=== PATIENT | female | born 1990 | race African-American/Black ===

== ENCOUNTER 2017-07-09 11:30 | Emergency (ER) | payer SELFPAY ==
[2017-07-09] MEDS ORDERED: IPRATROPIUM/ALBUTEROL 0.5-2.5 MG/3 ML AMPUL NEB ONE (12:24)
[2017-07-09] MEDS ORDERED: ALBUTEROL SULFATE 0.083% NEB 2.5 MG/3 ML AMPUL NEB ONE (12:24)
--- NOTE | 2017-07-09 13:13 | RADIOLOGY REPORT (SQ) ---
EXAM DESCRIPTION: CHEST PA/LAT COMPLETED DATE/TIME: 07/09/2017 12:37 pm REASON FOR STUDY: sob COMPARISON: None. EXAM PARAMETERS: NUMBER OF VIEWS: two views TECHNIQUE: Digital Frontal and Lateral radiographic views of the chest acquired. RADIATION DOSE: NA LIMITATIONS: none FINDINGS: LUNGS AND PLEURA: No opacities, masses or pneumothorax. No pleural effusion. MEDIASTINUM AND HILAR STRUCTURES: No masses or contour abnormalities. HEART AND VASCULAR STRUCTURES: Heart normal size. No evidence for failure. BONES: No acute findings. HARDWARE: None in the chest. OTHER: No other significant finding. IMPRESSION: NO SIGNIFICANT RADIOGRAPHIC FINDING IN THE CHEST. TECHNICAL DOCUMENTATION: JOB ID: [id number] [employer]- All Rights Reserved
[2017-07-09] MEDS ORDERED: PREDNISONE 20 MG TABLET PO ONE (13:33)
[2017-07-09] MEDS ORDERED: ALBUTEROL SULFATE HFA (90 MCG/PUFF) 8 GM MDI (1 MDI/ER DISP) IH ONE (13:34)
--- NOTE | 2017-07-09 13:36 | ER Document Report ---
ED General - General Chief Complaint: Cough Stated Complaint: DIFFICULTY BREATHING Time Seen by Provider: 07/09/17 11:59 TRAVEL OUTSIDE OF THE [place] IN LAST 30 DAYS: No - HPI Patient complains to provider of: Cough difficulty breathing Notes: Patient coming in for cough difficulty breathing. States recent upper airway infection cough 2 weeks ago states cough is improved however continues to build shortness of breath. Denies any smoking history denies any travel. Denies fevers chills nausea vomiting chest pain abdominal pain. Upon my evaluation patient has audible wheezing denies a history of asthma. - Related Data Allergies/Adverse Reactions: No Known Allergies Allergy (Verified 07/09/17 11:36) Past Medical History - Social History Smoking Status: Unknown if Ever Smoked Chew tobacco use (# tins/day): No Frequency of alcohol use: None Drug Abuse: None Family History: Reviewed & Not Pertinent Patient has suicidal ideation: No Patient has homicidal ideation: No - Past Medical History Cardiac Medical History: Denies: Hx Atrial Fibrillation, Hx Congestive Heart Failure, Hx Coronary Artery Disease, Hx DVT, Hx Heart Attack, Hx Hypercholesterolemia, Hx Hypertension, Hx Peripheral Vascular Disease, Hx Pulmonary Embolism Pulmonary Medical History: Denies: Hx Asthma, Hx Bronchitis, Hx COPD, Hx Pneumonia Neurological Medical History: Denies: Hx Cerebrovascular Accident, Hx Migraine, Hx Seizures Endocrine Medical History: Denies: Hx Diabetes Mellitus Type 1, Hx Diabetes Mellitus Type 2, Hx Graves' Disease, Hx Hyperthyroidism, Hx Hypothyroidism Renal/ Medical History: Denies: Hx Ectopic , Hx End Stage Renal Disease, Hx Hemodialysis, Hx Hydrocele, Hx Kidney Stones, Hx Ovarian Cysts, Hx Peritoneal Dialysis, Hx Pelvic Inflammatory Disease, Hx Renal Insufficiency, Hx Varicocele Malignancy Medical History: Denies: Hx Bone Cancer, Hx Brain Cancer, Hx Breast Cancer, Hx Cervical Cancer, Hx Colorectal Cancer, Hx Leukemia, Hx Liver Cancer, Hx Lung Cancer, Hx Lymphoma, Hx Ovarian Cancer, Hx Pancreatic Cancer, Hx Renal ( Kidney) Cancer, Hx Skin Cancer GI Medical History: Denies: Hx Cirrhosis, Hx Crohn's Disease, Hx Diverticulitis , Hx Gastritis, Hx Gastroesophageal Reflux Disease, Hx Hepatitis, Hx Hiatal Hernia, Hx Irritable Bowel, Hx Liver Failure, Hx Ulcer, Hx Ulcerative Colitis Musculoskeltal Medical History: Denies Hx Arthritis, Denies Hx Fibromyalgia, Denies Hx Gout, Denies Hx Multiple Sclerosis, Denies Hx Muscular Dystrophy, Denies Hx Muscle Spasm, Denies Hx Muscle Weakness, Denies Hx Musculoskeletal Deformity, Denies Hx Musculoskeletal Trauma Skin Medical History: Denies Hx Cellulitis, Denies Hx Eczema, Denies Hx MRSA, Denies Hx Psoriasis Psychiatric Medical History: Denies: Hx Anxiety, Hx Attention Deficit Hyperactivity Disorder, Hx Bipolar Disorder, Hx Borderline Personality Disorder, Hx Dementia, Hx Depression, Hx Obsessive Compulsive Disorder, Hx Personality Disorder, Hx Post Traumatic Stress Disorder, Hx Schizoaffective Disorder, Hx Schizophrenia Traumatic Medical History: Denies: Hx Fractures, Hx Gunshot Wound, Hx Liver Laceration, Hx Pneumothorax, Hx Spine Fracture, Hx Spleen Laceration/Rupture, Hx Traumatic Brain Injury Infectious Medical History: Denies: Hx C-Diff, Hx Hepatitis, Hx HIV, Hx MRSA, Hx VRE Past Surgical History: Denies: Hx Abdominal Surgery, Hx Adenoidectomy, Hx Appendectomy, Hx Bowel Diversion, Hx Bowel Surgery, Hx Breast Surgery, Hx Cardiac Catheterization, Hx Cardiac Surgery, Hx Carotid Endarterectomy, Hx Section, Hx Cholecystectomy, Hx Colostomy, Hx Coronary Artery Bypass Graft, Hx Coronary Stent, Hx Dilation and Curettage, Hx Gastric Bypass Surgery, Hx Genitourinary Surgery, Hx Gynecologic Surgery, Hx Herniorrhaphy, Hx Hysterectomy, Hx Ileostomy, Hx Inguinal Hernia, Hx Internal Defibrillator, Hx Kidney (Renal Surgery), Hx Lumpectomy, Hx Mastectomy, Hx Myringotomy, Hx Neurologic Surgery, Hx Nose Surgery, Hx Open Heart Surgery, Hx Oral Surgery, Hx Orthopedic Surgery, Hx Pacemaker, Hx Pancreatic Surgery, Hx Pituitary Surgery, Hx Rectal Surgery, Hx Thyroid Surgery, Hx Tonsillectomy, Hx Tubal Ligation, Hx Umbilical Hernia, Hx Urinary Tract Surgery, Hx Urostomy, Hx Valve Replacement, Hx Vascular Surgery, Hx SOUND EFFECTS SUPERVISOR Shunt, Hx Whipple - Immunizations Hx Diphtheria, Pertussis, Tetanus Vaccination: No Review of Systems - Review of Systems Constitutional: No symptoms reported EENT: No symptoms reported Cardiovascular: No symptoms reported Respiratory: Cough, Short of breath, Wheezing Gastrointestinal: No symptoms reported Genitourinary: No symptoms reported Female Genitourinary: No symptoms reported Musculoskeletal: No symptoms reported Skin: No symptoms reported Hematologic/Lymphatic: No symptoms reported Neurological/Psychological: No symptoms reported -: Yes All other systems reviewed and negative Physical Exam - Vital signs Vitals: Temp Pulse Resp BP Pulse Ox 98.0 F 98 22 H 160/80 H 100 07/09/17 11:36 07/09/17 11:36 07/09/17 11:36 07/09/17 11:36 07/09/17 11:36 Interpretation: Normal - General General appearance: Appears well, Alert - HEENT Head: Normocephalic, Atraumatic Eyes: Normal Pupils: PERRL - Respiratory Respiratory status: No respiratory distress Chest status: Nontender Breath sounds: Rhonchi, Wheezing Chest palpation: Normal - Cardiovascular Rhythm: Regular Heart sounds: Normal auscultation Murmur: No - Abdominal Inspection: Normal Distension: No distension Bowel sounds: Normal Tenderness: Nontender Organomegaly: No organomegaly - Back Back: Normal, Nontender - Extremities General upper extremity: Normal inspection, Nontender, Normal color, Normal ROM , Normal temperature General lower extremity: Normal inspection, Nontender, Normal color, Normal ROM , Normal temperature, Normal weight bearing. No: Dick's sign - Neurological Neuro grossly intact: Yes Cognition: Normal Orientation: AAOx4 [place] Coma Scale Eye Opening: Spontaneous [place] Coma Scale Verbal: Oriented [place] Coma Scale Motor: Obeys Commands [place] Coma Scale Total: 15 Speech: Normal Motor strength normal: LUE, RUE, LLE, RLE Sensory: Normal - Psychological Associated symptoms: Normal affect, Normal mood - Skin Skin Temperature: Warm Skin Moisture: Dry Skin Color: Normal Course - Re-evaluation Re-evalutation: 07/09/17 14:36 Chest x-ray is negative for any signs of pneumonia or infectious process. Patient better after breathing treatments wheezing has improved however still persistent. No signs of hypoxia more likely underlying bronchitis or reactive airway disease. Patient will be treated with steroids and bronchodilators. Patient feeling much better will be discharged home. - Vital Signs Vital signs: Temp Pulse Resp BP Pulse Ox 98.0 F 98 23 H 142/91 H 100 07/09/17 11:36 07/09/17 11:36 07/09/17 14:12 07/09/17 14:15 07/09/17 13:01 Discharge - Discharge Clinical Impression: Bronchitis Condition: Good Disposition: HOME, SELF-CARE Instructions: Bronchitis ([facility]) Additional Instructions: Your chest x-ray does not show any signs of pneumonia. Your examination does reveal diffuse wheezing more likely due to underlying bronchitis. Please use the inhaler that we gave you here in the ER 2 puffs every 4 hours for the next 5 days then as needed for shortness of breath. Take steroids as prescribed. Follow-up with your primary care physician as needed return to the ER as needed. Prescriptions: Prednisone [Deltasone 20 mg Tablet] 3 tab PO DAILY 4 Days tablet Forms: Return to Work
[2017-07-09 14:16] VITALS: BP 142/91
== END 2017-07-09 14:16 | disposition home or self-care (01) ==
LOC: ER 11:30
DX: J40 Bronchitis, not specified as acute or chronic (principal); R05 Cough; R06.02 Shortness of breath
CPT/HCPCS: 94640 ×2; 99285; 71020; J7512; J3490; J7620

== ENCOUNTER 2017-09-05 16:29 | Observation (INO) | payer MEDICAID ==
[~2017-09-05 16:29] MED LIST: DEXAMETHASONE SOD PHOSPHATE INJ 4 MG/1 ML VIAL ONE; GLYCOPYRROLATE INJ 0.4 MG/2 ML VIAL ONE; NEOSTIGMINE METHYLSULFATE 10 MG/10 ML VIAL ONE; ONDANSETRON HCL INJ/PF 4 MG/2 ML SDV ONE; ROCURONIUM BROMIDE INJ 50 MG/5 ML VIAL IV ONE; SUCCINYLCHOLINE CHLORIDE INJ 200 MG/10 ML VIAL ONE
[2017-09-05] MEDS ORDERED: RINGERS SOLUTION,LACTATED 1,000 ML IV ONE (16:51)
--- NOTE | 2017-09-05 17:18 | ER Document Report ---
ED General - General Chief Complaint: Abdominal Pain Stated Complaint: ABDOMINAL PAIN Time Seen by Provider: 09/05/17 16:50 Mode of Arrival: Ambulatory Information source: Patient, [facility] Records - Dr. Santana Thurston called over from radiology to state that he had a 10 week ectopic on a patient who is receiving an outpatient ultrasound. TRAVEL OUTSIDE OF THE [place] IN LAST 30 DAYS: No - HPI Patient complains to provider of: Vaginal spotting with Context: Patient states that she saw the health department last week for an evaluation regarding her . Patient is 4 para 2011. She is given a prescription for outpatient ultrasound which she had done today. Radiologist called over to state that the patient had a 10 week 6 day unruptured ectopic via ultrasound. Patient was walked over here to the department for further evaluation - Related Data Allergies/Adverse Reactions: No Known Allergies Allergy (Verified 07/09/17 11:36) Past Medical History - General Information source: Patient - Social History Smoking Status: Never Smoker Frequency of alcohol use: None Lives with: Family Family History: Reviewed & Not Pertinent - Medical History Medical History: Negative - Past Medical History Cardiac Medical History: Denies: Hx Atrial Fibrillation, Hx Congestive Heart Failure, Hx Coronary Artery Disease, Hx DVT, Hx Heart Attack, Hx Hypercholesterolemia, Hx Hypertension, Hx Peripheral Vascular Disease, Hx Pulmonary Embolism Pulmonary Medical History: Denies: Hx Asthma, Hx Bronchitis, Hx COPD, Hx Pneumonia Neurological Medical History: Denies: Hx Cerebrovascular Accident, Hx Migraine, Hx Seizures Endocrine Medical History: Denies: Hx Diabetes Mellitus Type 1, Hx Diabetes Mellitus Type 2, Hx Graves' Disease, Hx Hyperthyroidism, Hx Hypothyroidism Renal/ Medical History: Denies: Hx Ectopic , Hx End Stage Renal Disease, Hx Hemodialysis, Hx Hydrocele, Hx Kidney Stones, Hx Ovarian Cysts, Hx Peritoneal Dialysis, Hx Pelvic Inflammatory Disease, Hx Renal Insufficiency, Hx Varicocele Malignancy Medical History: Denies: Hx Bone Cancer, Hx Brain Cancer, Hx Breast Cancer, Hx Cervical Cancer, Hx Colorectal Cancer, Hx Leukemia, Hx Liver Cancer, Hx Lung Cancer, Hx Lymphoma, Hx Ovarian Cancer, Hx Pancreatic Cancer, Hx Renal ( Kidney) Cancer, Hx Skin Cancer GI Medical History: Denies: Hx Cirrhosis, Hx Crohn's Disease, Hx Diverticulitis , Hx Gastritis, Hx Gastroesophageal Reflux Disease, Hx Hepatitis, Hx Hiatal Hernia, Hx Irritable Bowel, Hx Liver Failure, Hx Ulcer, Hx Ulcerative Colitis Musculoskeltal Medical History: Denies Hx Arthritis, Denies Hx Fibromyalgia, Denies Hx Gout, Denies Hx Multiple Sclerosis, Denies Hx Muscular Dystrophy, Denies Hx Muscle Spasm, Denies Hx Muscle Weakness, Denies Hx Musculoskeletal Deformity, Denies Hx Musculoskeletal Trauma Skin Medical History: Denies Hx Cellulitis, Denies Hx Eczema, Denies Hx MRSA, Denies Hx Psoriasis Psychiatric Medical History: Denies: Hx Anxiety, Hx Attention Deficit Hyperactivity Disorder, Hx Bipolar Disorder, Hx Borderline Personality Disorder, Hx Dementia, Hx Depression, Hx Obsessive Compulsive Disorder, Hx Personality Disorder, Hx Post Traumatic Stress Disorder, Hx Schizoaffective Disorder, Hx Schizophrenia Traumatic Medical History: Denies: Hx Fractures, Hx Gunshot Wound, Hx Liver Laceration, Hx Pneumothorax, Hx Spine Fracture, Hx Spleen Laceration/Rupture, Hx Traumatic Brain Injury Infectious Medical History: Denies: Hx C-Diff, Hx Hepatitis, Hx HIV, Hx MRSA, Hx VRE Past Surgical History: Denies: Hx Abdominal Surgery, Hx Adenoidectomy, Hx Appendectomy, Hx Bowel Diversion, Hx Bowel Surgery, Hx Breast Surgery, Hx Cardiac Catheterization, Hx Cardiac Surgery, Hx Carotid Endarterectomy, Hx Section, Hx Cholecystectomy, Hx Colostomy, Hx Coronary Artery Bypass Graft, Hx Coronary Stent, Hx Dilation and Curettage, Hx Gastric Bypass Surgery, Hx Genitourinary Surgery, Hx Gynecologic Surgery, Hx Herniorrhaphy, Hx Hysterectomy, Hx Ileostomy, Hx Inguinal Hernia, Hx Internal Defibrillator, Hx Kidney (Renal Surgery), Hx Lumpectomy, Hx Mastectomy, Hx Myringotomy, Hx Neurologic Surgery, Hx Nose Surgery, Hx Open Heart Surgery, Hx Oral Surgery, Hx Orthopedic Surgery, Hx Pacemaker, Hx Pancreatic Surgery, Hx Pituitary Surgery, Hx Rectal Surgery, Hx Thyroid Surgery, Hx Tonsillectomy, Hx Tubal Ligation, Hx Umbilical Hernia, Hx Urinary Tract Surgery, Hx Urostomy, Hx Valve Replacement, Hx Vascular Surgery, Hx PHOTOVOLTAIC TECHNICIAN Shunt, Hx Whipple - Immunizations Hx Diphtheria, Pertussis, Tetanus Vaccination: No Review of Systems - Review of Systems Constitutional: No symptoms reported EENT: No symptoms reported Cardiovascular: No symptoms reported Gastrointestinal: No symptoms reported Genitourinary: No symptoms reported Female Genitourinary: , Vaginal bleeding Skin: No symptoms reported Hematologic/Lymphatic: No symptoms reported Neurological/Psychological: No symptoms reported -: Yes All other systems reviewed and negative Physical Exam - Vital signs Vitals: Temp Pulse Resp BP Pulse Ox 99.5 F 73 16 133/68 H 100 09/05/17 17:40 09/05/17 17:40 09/05/17 17:40 09/05/17 17:40 09/05/17 17:40 - Notes Notes: PHYSICAL EXAMINATION: GENERAL: Well-appearing, well-nourished. Extremely teary-eyed and anxious. HEAD: Atraumatic, normocephalic. EYES: Pupils equal round and reactive to light, extraocular movements intact, conjunctiva are normal. ENT: Nares patent, oropharynx clear without exudates. Moist mucous membranes. NECK: Normal range of motion, supple without lymphadenopathy LUNGS: Breath sounds clear to auscultation bilaterally and equal. No wheezes rales or rhonchi. HEART: Regular rate and rhythm without murmurs ABDOMEN: Soft, nontender, nondistended abdomen. No guarding, no rebound. No masses appreciated. Female : deferred Musculoskeletal: Normal range of motion, no pitting or edema. No cyanosis. NEUROLOGICAL: Cranial nerves grossly intact. Normal speech, normal gait. Normal sensory, motor exams PSYCH: Normal mood, normal affect. SKIN: Warm, Dry, normal turgor, no rashes or lesions noted. Course - Re-evaluation Re-evalutation: 09/05/17 17:13 Approximately 10 minutes ago I did call and speak with Dr. Schulte. She is on her way in here. Initial encounter with the patient her and her son who is approximately 10 years old I did ask to speak to her with them there and she said that was fine. I did let her know what was going on. She was very anxious and crying and emotional. I did leave the room after telling her about the need to get blood work and surgery. I did explain to her that this is life- threatening to her. I did ask the nurse to go in to take care of an IV and draw some blood work. The nurse did present to me stating that the patient is refusing everything. When I went back in the room the patient was in a gown however she was quite emotional and crying. I spent approximately 10 minutes in the room explaining to her again that this is life-threatening and that the baby cannot continue to develop in the fallopian tube. I did ask the patient she would like us to call her mom. She states that her mom's at the gym and not answering the phone and she will get in touch with her. The and the son did step out for a short period of time. I did ask the patient if I could please put the IV and get the blood work and that BATCH PLANT OPERATOR would come in and talk to her prior to having any surgical procedure done. After approximately 10 minutes the patient did agree to sit on the gurney and had the IV placed. Talk to blood bank and I will type and cross the patient for 4 units packed red blood cells. 09/05/17 19:13 Her Indocin did present to the emergency department. I brought her into the room introduced her to the patient. She will be admitting the patient taking her to the OR directly. - Vital Signs Vital signs: Temp Pulse Resp BP Pulse Ox 99.5 F 73 16 133/68 H 100 09/05/17 17:40 09/05/17 17:40 09/05/17 17:40 09/05/17 17:40 09/05/17 17:40 - Laboratory Result Diagrams: 09/05/17 17:20 09/05/17 17:20 Laboratory results interpreted by me: 09/05/17 17:20 BUN 5 L Beta HCG, Quant 38234.00 H Critical Care Note - Critical Care Note Total time excluding time spent on procedures (mins): 45 Comments: 45 minutes of critical care time spent in direct contact evaluating and reevaluating the patient, treating symptoms, reviewing labs and studies and speaking with family and consultants excluding any procedures Discharge - Discharge Clinical Impression: EP (ectopic ) Disposition: ADMITTED INPATIENT Admitting Provider: Dr. Schulte Unit Admitted: Surgical Floor
[2017-09-05 17:46] LABS: ABSOLUTE EOSINOPHILS # (AUTO) 0.1 10^3/uL (0.0-0.6); ABSOLUTE MONOCYTES (AUTO) 0.5 10^3/uL (0.1-1.4); ABSOLUTE NEUT (AUTO) 2.7 10^3/uL (1.7-8.2); BASOPHILS % (AUTO) 0.6 % (0-2); EOSINOPHILS % (AUTO) 1.7 % (0-6); HEMATOCRIT 42.1 % (36.0-47.0); HEMOGLOBIN 14.3 g/dL (12.0-15.5); LYMPHOCYTES % (AUTO) 38.2 % (13-45); MEAN CORPUSCULAR HGB CONC 33.9 g/dL (32.0-36.0); MEAN CORPUSCULAR VOLUME 89 fl (80-97); MONOCYTES % (AUTO) 8.5 % (3-13); PLATELET COUNT 224 10^3/uL (150-450); RED BLOOD COUNT 4.76 10^6/uL (3.72-5.28); RED CELL DISTRIBUTION WIDTH 13.4 % (11.5-14.0); TOTAL CELLS COUNTED % (AUTO) 100 %; WHITE BLOOD COUNT 5.3 10^3/uL (4.0-10.5)
[2017-09-05 17:55] LABS: INTERNATIONAL RATION (INR) 0.93; PROTHROMBIN TIME 13.2 SEC (11.4-15.4)
[2017-09-05 18:05] LABS: ALANINE AMINOTRANSFERASE 28 U/L (9-52); ALBUMIN 4.6 g/dL (3.5-5.0); ALKALINE PHOSPHATASE 52 U/L (38-126); ANION GAP 13 (5-19); ASPARTATE AMINO TRANSFERASE 25 U/L (14-36); BILIRUBIN,DIRECT 0.2 mg/dL (0.0-0.4); BILIRUBIN,TOTAL 0.5 mg/dL (0.2-1.3); BLOOD UREA NITROGEN 5 mg/dL (7-20); CALCIUM 10.1 mg/dL (8.4-10.2); CARBON DIOXIDE 22 mmol/L (22-30); CHLORIDE 107 mmol/L (98-107); GLUCOSE 83 mg/dL (75-110); POTASSIUM 3.8 mmol/L (3.6-5.0); SODIUM 141.8 mmol/L (137-145); TOTAL PROTEIN 7.6 g/dL (6.3-8.2)
--- NOTE | 2017-09-05 18:16 | PDOC H&P ---
History of Present Illness Patient complains of: mild spotting and abdominal pain History of Present Illness: CASSY PINA is a 27 year old female @ 10 6/7 days who presented to [facility] radiology today for an outpatient sono for EGA. Was found to have an ectopic measuring as above with heart tones in the 180s. (images were reviewed again by myself and there is no interuterine to be seen and agree there is a fetus measuring 10 wks outside of the uterine cavity.) She indicates that she has had some mild spotting today only with some mild cramping. Past Medical History Cardiac Medical History: Denies: Atrial Fibrillation, Congestive Heart Failure, Coronary Artery Disease, DVT, Myocardial Infarction, Hyperlipidema, Hypertension, Peripheral Vascular Disease, Pulmonary Embolism Pulmonary Medical History: Denies: Asthma, Bronchitis, Chronic Obstructive Pulmonary Disease (COPD), Pneumonia Neurological Medical History: Denies: Migraine, Seizures Endocrine Medical History: Denies: Diabetes Mellitus Type 1, Diabetes Mellitus Type 2, Hyperthyroidism, Hypothyroidism Renal/ Medical History: Denies: End Stage Renal Disease Malignancy Medical History: Denies: Bone Cancer, Brain Cancer, Breast Cancer, Cervical Cancer, Colorectal Cancer, Leukemia, Liver Cancer, Lung Cancer, Lymphoma, Ovarian Cancer , Pancreatic Cancer, Renal (Kidney) Cancer, Skin Cancer GI Medical History: Denies: Cirrhosis, Crohn's Disease, Diverticulitis, Gastroesophageal Reflux Disease, Hepatitis, Hiatal Hernia, Ulcerative Colitis Musculoskeltal Medical History: Denies: Arthritis, Fibromyalgia, Gout Skin Medical History: Denies: Eczema, Psoriasis Psychiatric Medical History: Denies: Attention Deficit Hyperactivity Disorder, Bipolar Disorder, Dementia , Depression, Personality Disorder, Post Traumatic Stress Disorder, Schizoaffective Disorder Traumatic Medical History: Denies: Gunshot Wound, Pneumothorax, Traumatic Brain Injury Infectious Medical History: Denies: Clostridium Difficile, HIV, Methicillin-Resistant Staph Aureus, Vancomycin-Resistant Enterococci Past Surgical History Past Surgical History: Denies: Adenoidectomy, Appendectomy, Cardiac Catheterization, Carotid Endarterectomy, Section, Cholecystectomy, Colostomy, Coronary Artery Bypass Graft, Coronary Stent, Gastric Bypass Surgery, Herniorrhaphy, Hysterectomy, Ileostomy, Internal Defibrillator, Mastectomy, Orthopedic Surgery , Pacemaker, Tonsillectomy, Tubal Ligation, Valve Replacement, Vascular Surgery Social History Lives with: Family Smoking Status: Never Smoker Family History Family History: Reviewed & Not Pertinent Parental Family History Reviewed: Yes Children Family History Reviewed: Yes Sibling(s) Family History Reviewed.: Yes Medication/Allergy Home Medications: Nitrofurantoin Macrocrystal [Macrodantin] 100 mg PO QID #28 capsule 08/06/13 Oxycodone HCl/Acetaminophen [Percocet 5-325 mg Tablet] 1 - 2 tab PO ASDIR PRN # 25 tablet 08/06/13 Acetaminophen with Codeine [Tylenol with Codeine #3 Tablet] 1 - 2 tab PO Q6 PRN #20 tab 08/08/13 Nitrofurantoin Macrocrystal [Nitrofurantoin] 100 mg PO QID 08/08/13 Ondansetron [Zofran Odt 4 mg Tablet] 4 mg PO Q4HP PRN 08/08/13 Phenazopyridine HCl [Pyridium 100 Mg Tablet] 100 mg PO TID #9 tablet 08/08/13 Prednisone [Deltasone 20 mg Tablet] 3 tab PO DAILY 4 Days tablet 07/09/17 Allergies/Adverse Reactions: No Known Allergies Allergy (Verified 07/09/17 11:36) Review of Systems Constitutional: PRESENT: as per HPI Physical Exam - Physical Exam Vital Signs: Temp Pulse Resp BP Pulse Ox 99.5 F 73 16 133/68 H 100 09/05/17 17:40 09/05/17 17:40 09/05/17 17:40 09/05/17 17:40 09/05/17 17:40 Result Laboratory Results: 09/05/17 17:20 09/05/17 09/05/17 17:20 17:20 WBC 5.3 RBC 4.76 Hgb 14.3 Hct 42.1 MCV 89 MCH 30.0 MCHC 33.9 RDW 13.4 Plt Count 224 Seg Neutrophils % 51.0 Lymphocytes % 38.2 Monocytes % 8.5 Eosinophils % 1.7 Basophils % 0.6 Absolute Neutrophils 2.7 Absolute Lymphocytes 2.0 Absolute Monocytes 0.5 Absolute Eosinophils 0.1 Absolute Basophils 0.0 Blood Type Cancelled Status: Image reviewed by me Assessment & Plan - Diagnosis (1) Ectopic without intrauterine Qualifiers: Location of ectopic : tubal Laterality: unspecified laterality Qualified Code(s): O00.109 - Unspecified tubal without intrauterine Is this a current diagnosis for this admission?: Yes - Time Time Spent: 30 to 50 Minutes Critical Time spent with patient: 15-24 minutes Anticipated discharge: Home Within: within 24 hours - Plan Summary Plan Summary: patient in need of a laparoscopic salpingectomy due to EGA of fetus and risks of from hemorrhage. Patient counseled on need for fallopian tube removal and removal of fetus due to these risks and she voices understanding. I counseled her that removal of one fallopian tube does not preclude her from achieving through the other fallopian tube in the future. I also counseled her on risks of the procedure including risks to bowel/bladder/blood vessels and possibility of ostomies, catheters and blood transfusion. Counseled on risks of thrombosis with associated medical complications up to and including . Voices understanding. computer analyst supervisor contacted to post case for emergent laparoscopic salpingectomy with possible laparotomy.
[2017-09-05] MEDS ORDERED: FAMOTIDINE INJ/PF 20 MG/2 ML SDV IV ONE (19:00)
[2017-09-05] MEDS ORDERED: FENTANYL CITRATE INJ/PF 100 MCG/2 ML AMPUL ONE ×2 (19:03→21:15)
[2017-09-05] MEDS ORDERED: MIDAZOLAM 2 MG/2 ML INJ ONE (19:03)
[2017-09-05] MEDS ORDERED: HYDROMORPHONE HCL INJ/PF 2 MG/ML AMPULE ONE (19:04)
[2017-09-05] MEDS ORDERED: ACETAMINOPHEN 100 ML IV ONE (19:04)
[2017-09-05] MEDS ORDERED: PROPOFOL INJ 200 MG/20 ML VIAL IV ONE (19:04)
[2017-09-05] MEDS ORDERED: CEFAZOLIN INJ 1 GM VIAL ONE (19:40)
[2017-09-05] MEDS ORDERED: MEPERIDINE HCL/PF INJ 25 MG/1 ML DISP.SYRIN IV PRN (20:43)
[2017-09-05] MEDS ORDERED: MORPHINE SULFATE 10 MG/ML INJ IV PRN ×2 (20:43→22:00)
[2017-09-05] MEDS ORDERED: OXYCODONE-ACETAMINOPHEN 5-325 MG TABLET PO PRN ×2 (20:43)
[2017-09-05] MEDS ORDERED: DIPHENHYDRAMINE HCL 50 MG/ML VIAL IV PRN (20:43)
[2017-09-05] MEDS ORDERED: FENTANYL CITRATE INJ/PF 100 MCG/2 ML AMPUL IV PRN ×3 (20:43)
[2017-09-05] MEDS ORDERED: PROMETHAZINE HCL INJ 25 MG/1 ML VIAL IV PRN ×2 (20:43)
[2017-09-05] MEDS ORDERED: RINGERS SOLUTION,LACTATED 1,000 ML IV PRN (21:19)
--- NOTE | 2017-09-05 21:39 | OPERATIVE REPORT E ---
Operative Report NAME: CASSY PINA : 1990 AGE: 27Y DATE OF SURGERY: 09/05/2017 ROOM: ED21 PREOPERATIVE DIAGNOSIS: ECTOPIC . POSTOPERATIVE DIAGNOSIS: RIGHT ECTOPIC . SURGEON: Nicolle Galdamez M.D. ANESTHESIA: General by David Tran M.D. FINDINGS: Ectopic , well encased in the right fallopian tube, consistent with ultrasound findings of 10 week gestational age. Left fallopian tube normal. Filmy adhesions of the peritoneal cavity to the uterus and some mild filmy adhesions of the left fallopian tube. ESTIMATED BLOOD LOSS: 20 mL PROCEDURE PERFORMED: Diagnostic laparoscopy with a right salpingectomy. PROCEDURE IN DETAIL: Patient was taken to operating room, prepared and draped in normal sterile fashion in a dorsal lithotomy position under sterile conditions. An in and out catheter was performed with approximately 20 mL of clear urine. A sterile speculum was then placed into the vagina and the cervix was traversed with a Hulka clamp for uterine manipulation. The speculum was removed and gloves were changed and attention was turned to the upper portion of the case where an umbilical skin incision was made with the scalpel and carried through to the underlying layer of fascia with a hemostat. The Veress needle was introduced into the peritoneal cavity and confirmation was confirmed with free flow of sterile water through the Veress needle. Insufflation with approximately 2 L of CO2 gas to a level of 15 mmHg. The Veress needle was then removed and the 5 mm port was placed through this incision. The camera was introduced and the patient was placed into Trendelenburg. Under direct visualization, a 5 mm port was placed in the patient's left lower quadrant and in the right lower quadrant, a 12 mm port was placed under direct visualization. The ligature was then introduced and the mesosalpinx was divided using the ligature until the fallopian tube was completely freed, containing the ectopic . The ectopic was then captured in an EndoCatch bag and removed through the 12 mm port. The fascia was closed at the 12 mm port using an 0 Vicryl. The skin sites were all closed with 4-0 Vicryl. Patient tolerated procedure well. Sponge, lap, and needle counts were correct x2 and the patient was taken to recovery in stable condition. DICTATING PHYSICIAN: NICOLLE GALDAMEZ M.D. [id number] PHY#: [id number] ID: [id number] JOB#: [id number] ACCT: [id number] cc:NICOLLE GALDAMEZ M.D. >
[2017-09-05] MEDS: IBUPROFEN 800 MG TABLET PO PRN (23:14)
[2017-09-06] MEDS: OXYCODONE-ACETAMINOPHEN 5-325 MG TABLET PO PRN ×2 (01:21→08:18)
--- NOTE | 2017-09-06 07:17 | PDOC DISCHARGE SUMMARY ---
General - Admit/Disc Date/PCP Admission Date/Primary Care Provider: 09/05/17 18:19 Discharge Date: 09/06/17 - Discharge Diagnosis (1) Ectopic without intrauterine Is this a current diagnosis for this admission?: Yes - Additional Information Home Medications: Nitrofurantoin Macrocrystal [Macrodantin] 100 mg PO QID #28 capsule 08/06/13 Oxycodone HCl/Acetaminophen [Percocet 5-325 mg Tablet] 1 - 2 tab PO ASDIR PRN # 25 tablet 08/06/13 Acetaminophen with Codeine [Tylenol with Codeine #3 Tablet] 1 - 2 tab PO Q6 PRN #20 tab 08/08/13 Nitrofurantoin Macrocrystal [Nitrofurantoin] 100 mg PO QID 08/08/13 Ondansetron [Zofran Odt 4 mg Tablet] 4 mg PO Q4HP PRN 08/08/13 Phenazopyridine HCl [Pyridium 100 Mg Tablet] 100 mg PO TID #9 tablet 08/08/13 Prednisone [Deltasone 20 mg Tablet] 3 tab PO DAILY 4 Days tablet 07/09/17 History of Present Illness History of Present Illness: CASSY PINA is a 27 year old female @ 10 6/7 days who presented to [facility] radiology today for an outpatient sono for EGA. Was found to have an ectopic measuring as above with heart tones in the 180s. (images were reviewed again by myself and there is no interuterine to be seen and agree there is a fetus measuring 10 wks outside of the uterine cavity.) She indicates that she has had some mild spotting today only with some mild cramping. Hospital Course Hospital Course: presented to ER from radiology with 10 wk ega right ectopic . Underwent a laparoscopic right salpingectomy. Unremarkale post operative course. Physical Exam - Physical Exam Vital Signs: Temp Pulse Resp BP Pulse Ox 98.2 F 73 18 122/59 L 100 09/06/17 03:53 09/06/17 03:53 09/06/17 03:53 09/06/17 03:53 09/06/17 03:53 Intake & Output 09/05/17 09/06/17 09/07/17 06:59 06:59 06:59 Intake Total 1600 Output Total 45 Balance 1555 General appearance: PRESENT: no acute distress, cooperative GI/Abdominal exam: PRESENT: soft, tenderness - appropriate for post operative state. 3 incisions c/d/intact Result Laboratory Results: 09/05/17 18:41 Blood Type A POSITIVE Plan Discharge Plan: discharge home with strict precautions. follow up in 2 wks with [facility]. May have work note as needed for 1 week off. Time Spent: Less than 30 Minutes
[2017-09-06] MEDS: IBUPROFEN 800 MG TABLET PO PRN (08:18)
[2017-09-06 09:46] VITALS: BP 122/59
== END 2017-09-06 10:10 | disposition home or self-care (01) ==
LOC: ER 16:29 → INTOOBSV 18:19 → EH 18:19 → 2N 21:53
PROVIDERS: ATTEND Obstetrics & Gynecology
PROC: 0UT54ZZ Resection of Right Fallopian Tube, Percutaneous Endoscopic Approach (ICD-10-PCS; 2017-09-05)
PROC: 10T24ZZ Resection of Products of Conception, Ectopic, Percutaneous Endoscopic Approach (ICD-10-PCS; principal; 2017-09-05 21:15)
DX: O00.101 Right tubal pregnancy without intrauterine pregnancy (principal)
CPT/HCPCS: 99291; 86900; 86901; 36415; 84702; 85025; 85610; 80053; 88305 ×2; 59151; G0378 ×3; J2250; J0690; J3490 ×4; J1100; J3010; J2270; J1170; J0330; J2405; J2704; J0131; 840

== ENCOUNTER → 2017-09-05 | Outpatient (CLI) | payer SELFPAY ==
--- NOTE | 2017-09-05 16:47 | RADIOLOGY REPORT (SQ) ---
EXAM DESCRIPTION: U/S [id number] TRNABD 1GES W/ODOP COMPLETED DATE/TIME: 09/05/2017 4:39 pm REASON FOR STUDY: ENCOUNTER FOR SUPERVISION OF OTHER NORMAL , FIRST TRIMESTER Z34.81 ENCOU NTER FOR SUPRVSN OF NORMAL , FIRST TRIM COMPARISON: None. TECHNIQUE: Transvaginal static and realtime grayscale images acquired of the pelvis. Additional melinda cted spectral and color Doppler images recorded. All images stored on PACs. bHCG: Not available. LIMITATIONS: None. FINDINGS: There is a tubal in the right fallopian tube with heart rate 192. The daniela maria l is normal. No free fluid. IMPRESSION: Unruptured ectopic . EGA 10 weeks 6 days Trimester of : First - 0 to 13 weeks. COMMENT: Findings were discussed with the patient. Findings were discussed with the ED provider. TECHNICAL DOCUMENTATION: JOB ID: [id number] [employer]- All Rights Reserved
== END ==
LOC: RAD 15:46
PROVIDERS: ATTEND Nurse Practitioner Women's Health
DX: Z34.81 Encounter for supervision of other normal pregnancy, first trimester (principal)
CPT/HCPCS: 76801

== ENCOUNTER 2017-09-07 12:26 | Emergency (ER) | payer MEDICAID ==
[2017-09-07] MEDS ORDERED: HYDROMORPHONE HCL 2 MG TABLET PO ONE (13:14)
[2017-09-07] MEDS ORDERED: ONDANSETRON 4 MG TAB.RAPDIS PO ONE (13:14)
--- NOTE | 2017-09-07 13:16 | ER Document Report ---
ED Medical Screen (RME) - General Chief Complaint: Post Surgical Pain Stated Complaint: BODY ACHES VOMITING Time Seen by Provider: 09/07/17 13:09 Notes: This 27-year-old female patient had a laparoscopic right salpingectomy for ectopic 2 days ago. She was discharged home with Percocet and Motrin. She states it is not helping her pain and she developed nausea and vomiting this morning. She states she is aching all over particularly across her lower back. I have greeted and performed a rapid initial assessment of this patient. A comprehensive ED assessment and evaluation of the patient, analysis of test results and completion of the medical decision making process will be conducted by additional ED providers. TRAVEL OUTSIDE OF THE [place] IN LAST 30 DAYS: No - Related Data Allergies/Adverse Reactions: No Known Allergies Allergy (Verified 07/09/17 11:36) Past Medical History - Past Medical History Cardiac Medical History: Denies: Hx Atrial Fibrillation, Hx Congestive Heart Failure, Hx Coronary Artery Disease, Hx DVT, Hx Heart Attack, Hx Hypercholesterolemia, Hx Hypertension, Hx Peripheral Vascular Disease, Hx Pulmonary Embolism Pulmonary Medical History: Denies: Hx Asthma, Hx Bronchitis, Hx COPD, Hx Pneumonia Neurological Medical History: Denies: Hx Cerebrovascular Accident, Hx Migraine, Hx Seizures Endocrine Medical History: Denies: Hx Diabetes Mellitus Type 1, Hx Diabetes Mellitus Type 2, Hx Graves' Disease, Hx Hyperthyroidism, Hx Hypothyroidism Renal/ Medical History: Denies: Hx Ectopic , Hx End Stage Renal Disease, Hx Hemodialysis, Hx Hydrocele, Hx Kidney Stones, Hx Ovarian Cysts, Hx Peritoneal Dialysis, Hx Pelvic Inflammatory Disease, Hx Renal Insufficiency, Hx Varicocele Malignancy Medical History: Denies: Hx Bone Cancer, Hx Brain Cancer, Hx Breast Cancer, Hx Cervical Cancer, Hx Colorectal Cancer, Hx Leukemia, Hx Liver Cancer, Hx Lung Cancer, Hx Lymphoma, Hx Ovarian Cancer, Hx Pancreatic Cancer, Hx Renal ( Kidney) Cancer, Hx Skin Cancer GI Medical History: Denies: Hx Cirrhosis, Hx Crohn's Disease, Hx Diverticulitis , Hx Gastritis, Hx Gastroesophageal Reflux Disease, Hx Hepatitis, Hx Hiatal Hernia, Hx Irritable Bowel, Hx Liver Failure, Hx Ulcer, Hx Ulcerative Colitis Musculoskeltal Medical History: Denies Hx Arthritis, Denies Hx Fibromyalgia, Denies Hx Gout, Denies Hx Multiple Sclerosis, Denies Hx Muscular Dystrophy, Denies Hx Muscle Spasm, Denies Hx Muscle Weakness, Denies Hx Musculoskeletal Deformity, Denies Hx Musculoskeletal Trauma Skin Medical History: Denies Hx Cellulitis, Denies Hx Eczema, Denies Hx MRSA, Denies Hx Psoriasis Psychiatric Medical History: Denies: Hx Anxiety, Hx Attention Deficit Hyperactivity Disorder, Hx Bipolar Disorder, Hx Borderline Personality Disorder, Hx Dementia, Hx Depression, Hx Obsessive Compulsive Disorder, Hx Personality Disorder, Hx Post Traumatic Stress Disorder, Hx Schizoaffective Disorder, Hx Schizophrenia Traumatic Medical History: Denies: Hx Fractures, Hx Gunshot Wound, Hx Liver Laceration, Hx Pneumothorax, Hx Spine Fracture, Hx Spleen Laceration/Rupture, Hx Traumatic Brain Injury Infectious Medical History: Denies: Hx C-Diff, Hx Hepatitis, Hx HIV, Hx MRSA, Hx VRE Past Surgical History: Denies: Hx Abdominal Surgery, Hx Adenoidectomy, Hx Appendectomy, Hx Bowel Diversion, Hx Bowel Surgery, Hx Breast Surgery, Hx Cardiac Catheterization, Hx Cardiac Surgery, Hx Carotid Endarterectomy, Hx Section, Hx Cholecystectomy, Hx Colostomy, Hx Coronary Artery Bypass Graft, Hx Coronary Stent, Hx Dilation and Curettage, Hx Gastric Bypass Surgery, Hx Genitourinary Surgery, Hx Gynecologic Surgery, Hx Herniorrhaphy, Hx Hysterectomy, Hx Ileostomy, Hx Inguinal Hernia, Hx Internal Defibrillator, Hx Kidney (Renal Surgery), Hx Lumpectomy, Hx Mastectomy, Hx Myringotomy, Hx Neurologic Surgery, Hx Nose Surgery, Hx Open Heart Surgery, Hx Oral Surgery, Hx Orthopedic Surgery, Hx Pacemaker, Hx Pancreatic Surgery, Hx Pituitary Surgery, Hx Rectal Surgery, Hx Thyroid Surgery, Hx Tonsillectomy, Hx Tubal Ligation, Hx Umbilical Hernia, Hx Urinary Tract Surgery, Hx Urostomy, Hx Valve Replacement, Hx Vascular Surgery, Hx FR[employer] HARVEST WORKER Shunt, Hx Whipple - Immunizations Hx Diphtheria, Pertussis, Tetanus Vaccination: No History of Influenza Vaccine for 05/2017 - 10/2017 Season: Refused Physical Exam - Vital signs Vitals: Temp Pulse Resp BP Pulse Ox 98.5 F 70 19 134/66 H 100 09/07/17 12:34 09/07/17 12:34 09/07/17 12:34 09/07/17 12:34 09/07/17 12:34 Course - Vital Signs Vital signs: Temp Pulse Resp BP Pulse Ox 98.5 F 70 19 134/66 H 100 09/07/17 12:34 09/07/17 12:34 09/07/17 12:34 09/07/17 12:34 09/07/17 12:34
[2017-09-07 14:01] LABS: ABSOLUTE LYMPHOCYTES (AUTO) 1.2 10^3/uL (0.5-4.7); ABSOLUTE MONOCYTES (AUTO) 0.7 10^3/uL (0.1-1.4); ABSOLUTE NEUT (AUTO) 5.5 10^3/uL (1.7-8.2); APPEARANCE,URINE SLIGHTLY-CLOUDY; BASOPHILS % (AUTO) 0.4 % (0-2); BILIRUBIN,URINE NEGATIVE (NEGATIVE); COLOR,URINE STRAW; EOSINOPHILS % (AUTO) 0.6 % (0-6); GLUCOSE, URINE NEGATIVE (NEGATIVE); HEMATOCRIT 37.7 % (36.0-47.0); HEMOGLOBIN 13.1 g/dL (12.0-15.5); KETONES,URINE NEGATIVE (NEGATIVE); LEUKOCYTE ESTERASE,URINE NEGATIVE (NEGATIVE); MEAN CORPUSCULAR HEMOGLOBIN 30.3 pg (27.0-33.4); MEAN CORPUSCULAR HGB CONC 34.9 g/dL (32.0-36.0); MEAN CORPUSCULAR VOLUME 87 fl (80-97); MONOCYTES % (AUTO) 8.9 % (3-13); NITRITE,URINE NEGATIVE (NEGATIVE); PLATELET COUNT 201 10^3/uL (150-450); PROTEIN,URINE NEGATIVE (NEGATIVE); RED BLOOD COUNT 4.34 10^6/uL (3.72-5.28); RED CELL DISTRIBUTION WIDTH 13.1 % (11.5-14.0); SEGMENTED NEUTROPHILS % (AUTO) 74.1 % (42-78); TOTAL CELLS COUNTED % (AUTO) 100 %; URINE SPECIFIC GRAVITY 1.005; UROBILINOGEN,URINE NEGATIVE mg/dL (<2.0); WHITE BLOOD COUNT 7.4 10^3/uL (4.0-10.5)
[2017-09-07 14:25] LABS: ALANINE AMINOTRANSFERASE 40 U/L (9-52); ALBUMIN 4.4 g/dL (3.5-5.0); ALKALINE PHOSPHATASE 52 U/L (38-126); ANION GAP 13 (5-19); ASPARTATE AMINO TRANSFERASE 48 U/L (14-36); BILIRUBIN,DIRECT 0.1 mg/dL (0.0-0.4); BILIRUBIN,TOTAL 0.2 mg/dL (0.2-1.3); BLOOD UREA NITROGEN 6 mg/dL (7-20); CALCIUM 9.7 mg/dL (8.4-10.2); CARBON DIOXIDE 21 mmol/L (22-30); CHLORIDE 107 mmol/L (98-107); GLUCOSE 88 mg/dL (75-110); POTASSIUM 3.8 mmol/L (3.6-5.0); SODIUM 140.5 mmol/L (137-145); TOTAL PROTEIN 7.2 g/dL (6.3-8.2)
--- NOTE | 2017-09-07 17:52 | RADIOLOGY REPORT (SQ) ---
EXAM DESCRIPTION: U/S NON-OB PELVIS TV W/O DOP COMPLETED DATE/TIME: 09/07/2017 5:42 pm REASON FOR STUDY: post R salingectomy pain(09/05/17) COMPARISON: Preoperative study from 2 days ago. Recently status post salpingectomy for ectopic. TECHNIQUE: Dynamic and static grayscale images acquired of the pelvis via transvaginal approach and recorded on PACS. Additional selected color Doppler and spectral images recorded. LIMITATIONS: None. FINDINGS: UTERUS: Contour normal. No mass. ENDOMETRIAL STRIPE: No focal or generalized thickening. No masses. CERVIX: No nabothian cysts. RIGHT OVARY: No abnormal masses. RIGHT OVARY DOPPLER: Normal arterial vascular flow without evidence for torsion. LEFT OVARY: No abnormal masses. LEFT OVARY DOPPLER: Normal arterial vascular flow without evidence for torsion. FREE FLUID: None noted. OTHER: No other significant finding. MEASUREMENTS: UTERUS: 9 x 6 x 6 cm ENDOMETRIAL STRIPE: 1.6 cm RIGHT OVARY: 3 x 3 x 2 cm LEFT OVARY: 3 x 1 x 2 cm IMPRESSION: Today's transvaginal pelvic ultrasound is normal. No fluid collections. No IUP. Previ ously noted ectopic has been removed. TECHNICAL DOCUMENTATION: JOB ID: [id number] [employer]- All Rights Reserved
--- NOTE | 2017-09-07 18:00 | ER Document Report ---
ED General - General Chief Complaint: Post Surgical Pain Stated Complaint: BODY ACHES VOMITING Time Seen by Provider: 09/07/17 13:09 Notes: Patient is postop day 2 status post ectopic . Patient had laparoscopic surgery. Dr. Schulte. Patient was discharged the next day. States that she feels like she was dropped off the OR table. Hurts all over. Denies any fever, chills, sweats. Taking her medication but not working. That nobody told her anything at discharge. Was not told that she was going to hurt all over. TRAVEL OUTSIDE OF THE [place] IN LAST 30 DAYS: No - Related Data Allergies/Adverse Reactions: No Known Allergies Allergy (Verified 07/09/17 11:36) Past Medical History - General Information source: Patient - Social History Smoking Status: Never Smoker Chew tobacco use (# tins/day): No Frequency of alcohol use: None Drug Abuse: None Family History: Reviewed & Not Pertinent Patient has suicidal ideation: No Patient has homicidal ideation: No - Past Medical History Cardiac Medical History: Denies: Hx Atrial Fibrillation, Hx Congestive Heart Failure, Hx Coronary Artery Disease, Hx DVT, Hx Heart Attack, Hx Hypercholesterolemia, Hx Hypertension, Hx Peripheral Vascular Disease, Hx Pulmonary Embolism Pulmonary Medical History: Denies: Hx Asthma, Hx Bronchitis, Hx COPD, Hx Pneumonia Neurological Medical History: Denies: Hx Cerebrovascular Accident, Hx Migraine, Hx Seizures Endocrine Medical History: Denies: Hx Diabetes Mellitus Type 1, Hx Diabetes Mellitus Type 2, Hx Graves' Disease, Hx Hyperthyroidism, Hx Hypothyroidism Renal/ Medical History: Denies: Hx Ectopic , Hx End Stage Renal Disease, Hx Hemodialysis, Hx Hydrocele, Hx Kidney Stones, Hx Ovarian Cysts, Hx Peritoneal Dialysis, Hx Pelvic Inflammatory Disease, Hx Renal Insufficiency, Hx Varicocele Malignancy Medical History: Denies: Hx Bone Cancer, Hx Brain Cancer, Hx Breast Cancer, Hx Cervical Cancer, Hx Colorectal Cancer, Hx Leukemia, Hx Liver Cancer, Hx Lung Cancer, Hx Lymphoma, Hx Ovarian Cancer, Hx Pancreatic Cancer, Hx Renal ( Kidney) Cancer, Hx Skin Cancer GI Medical History: Denies: Hx Cirrhosis, Hx Crohn's Disease, Hx Diverticulitis , Hx Gastritis, Hx Gastroesophageal Reflux Disease, Hx Hepatitis, Hx Hiatal Hernia, Hx Irritable Bowel, Hx Liver Failure, Hx Ulcer, Hx Ulcerative Colitis Musculoskeltal Medical History: Denies Hx Arthritis, Denies Hx Fibromyalgia, Denies Hx Gout, Denies Hx Multiple Sclerosis, Denies Hx Muscular Dystrophy, Denies Hx Muscle Spasm, Denies Hx Muscle Weakness, Denies Hx Musculoskeletal Deformity, Denies Hx Musculoskeletal Trauma Skin Medical History: Denies Hx Cellulitis, Denies Hx Eczema, Denies Hx MRSA, Denies Hx Psoriasis Psychiatric Medical History: Denies: Hx Anxiety, Hx Attention Deficit Hyperactivity Disorder, Hx Bipolar Disorder, Hx Borderline Personality Disorder, Hx Dementia, Hx Depression, Hx Obsessive Compulsive Disorder, Hx Personality Disorder, Hx Post Traumatic Stress Disorder, Hx Schizoaffective Disorder, Hx Schizophrenia Traumatic Medical History: Denies: Hx Fractures, Hx Gunshot Wound, Hx Liver Laceration, Hx Pneumothorax, Hx Spine Fracture, Hx Spleen Laceration/Rupture, Hx Traumatic Brain Injury Infectious Medical History: Denies: Hx C-Diff, Hx Hepatitis, Hx HIV, Hx MRSA, Hx VRE Past Surgical History: Denies: Hx Abdominal Surgery, Hx Adenoidectomy, Hx Appendectomy, Hx Bowel Diversion, Hx Bowel Surgery, Hx Breast Surgery, Hx Cardiac Catheterization, Hx Cardiac Surgery, Hx Carotid Endarterectomy, Hx Section, Hx Cholecystectomy, Hx Colostomy, Hx Coronary Artery Bypass Graft, Hx Coronary Stent, Hx Dilation and Curettage, Hx Gastric Bypass Surgery, Hx Genitourinary Surgery, Hx Gynecologic Surgery, Hx Herniorrhaphy, Hx Hysterectomy, Hx Ileostomy, Hx Inguinal Hernia, Hx Internal Defibrillator, Hx Kidney (Renal Surgery), Hx Lumpectomy, Hx Mastectomy, Hx Myringotomy, Hx Neurologic Surgery, Hx Nose Surgery, Hx Open Heart Surgery, Hx Oral Surgery, Hx Orthopedic Surgery, Hx Pacemaker, Hx Pancreatic Surgery, Hx Pituitary Surgery, Hx Rectal Surgery, Hx Thyroid Surgery, Hx Tonsillectomy, Hx Tubal Ligation, Hx Umbilical Hernia, Hx Urinary Tract Surgery, Hx Urostomy, Hx Valve Replacement, Hx Vascular Surgery, Hx YOUTH MINISTRY DIRECTOR Shunt, Hx Whipple - Immunizations Hx Diphtheria, Pertussis, Tetanus Vaccination: No Review of Systems - Review of Systems Constitutional: Other - Diffuse body ache EENT: No symptoms reported Cardiovascular: No symptoms reported Respiratory: No symptoms reported Gastrointestinal: No symptoms reported Genitourinary: No symptoms reported Female Genitourinary: No symptoms reported Musculoskeletal: Other - Use myalgias Skin: No symptoms reported Hematologic/Lymphatic: No symptoms reported Neurological/Psychological: No symptoms reported Physical Exam - Vital signs Vitals: Temp Pulse Resp BP Pulse Ox 98.5 F 70 19 134/66 H 100 09/07/17 12:34 09/07/17 12:34 09/07/17 12:34 09/07/17 12:34 09/07/17 12:34 Interpretation: Normal - General General appearance: Appears well, Alert Notes: Patient is tearful - HEENT Head: Normocephalic, Atraumatic Eyes: Normal Pupils: PERRL - Respiratory Respiratory status: No respiratory distress Chest status: Nontender Breath sounds: Normal Chest palpation: Normal - Cardiovascular Rhythm: Regular Heart sounds: Normal auscultation Murmur: No - Abdominal Inspection: Normal Distension: No distension Bowel sounds: Normal Tenderness: Nontender Organomegaly: No organomegaly Notes: Lower abdominal incisions well-appearing. Healing well. - Back Back: Normal, Nontender - Extremities General upper extremity: Normal inspection, Nontender, Normal color, Normal ROM , Normal temperature General lower extremity: Normal inspection, Nontender, Normal color, Normal ROM , Normal temperature, Normal weight bearing. No: Dick's sign - Neurological Neuro grossly intact: Yes Cognition: Normal Orientation: AAOx4 Shelby Coma Scale Eye Opening: Spontaneous Russell Coma Scale Verbal: Oriented Shelby Coma Scale Motor: Obeys Commands Russell Coma Scale Total: 15 Speech: Normal Motor strength normal: LUE, RUE, LLE, RLE Sensory: Normal - Psychological Associated symptoms: Normal affect, Normal mood - Skin Skin Temperature: Warm Skin Moisture: Dry Skin Color: Normal Course - Re-evaluation Re-evalutation: 09/07/17 18:00 Rubs or unremarkable. Ultrasound reviewed and unremarkable. Spoke with Dr. Calvillo who is on-call for Dr. Schulte. Recommends giving her ibuprofen. Nothing further at this time that they recommend. Has follow-up. Will DC at this time. Had long discussion with the patient regarding expectations after surgery. Patient seems to comprehend the understanding. Will DC. - Vital Signs Vital signs: Temp Pulse Resp BP Pulse Ox 98.5 F 70 19 134/66 H 100 09/07/17 12:34 09/07/17 12:34 09/07/17 12:34 09/07/17 12:34 09/07/17 12:34 - Laboratory Result Diagrams: 09/07/17 13:30 09/07/17 13:30 Laboratory results interpreted by me: 09/07/17 09/07/17 13:30 13:30 Carbon Dioxide 21 L BUN 6 L AST 48 H Urine Blood LARGE H Discharge - Discharge Clinical Impression: Post-operative pain Condition: Good Disposition: HOME, SELF-CARE Instructions: Post-Laparoscopy Diaphragm Pain ([facility]) Additional Instructions: Your pain is consistent with postoperative pain. Drink plenty of fluids. Ibuprofen every 8 hours will help with her symptoms. Continue with regular medications that were prescribed by her surgeon. Please follow-up with Dr. Schulte for your scheduled follow-up. Return for any worsening symptoms or concerns. Prescriptions: Ibuprofen [Motrin 600 mg Tablet] 600 mg PO Q8HP PRN 10 Days #30 tablet PRN Reason:
[2017-09-07] MEDS ORDERED: IBUPROFEN 800 MG TABLET PO ONE (18:01)
[2017-09-07 18:24] VITALS: BP 130/68
== END 2017-09-07 18:20 | disposition home or self-care (01) ==
LOC: ER 12:26
DX: G89.18 Other acute postprocedural pain (principal); M79.1 Myalgia
CPT/HCPCS: 99284; 36415; 87040; 85025; 80053; 81001; 76830; J3490 ×2; S0119

== ENCOUNTER → 2018-10-03 | Outpatient (CLI) | payer BC, MEDICAID ==
--- NOTE | 2018-10-03 17:10 | RADIOLOGY REPORT (SQ) ---
EXAM DESCRIPTION: U/S NON-OB PELVIS TV W/O DOP COMPLETED DATE/TIME: 10/03/2018 5:01 pm REASON FOR STUDY: R10.2 PELVIC AND PERINEAL PAIN R10.2 PELVIC AND PERINEAL PAIN COMPARISON: 09/07/2017 TECHNIQUE: Dynamic and static grayscale images acquired of the pelvis via transvaginal approach and recorded on PACS. Additional selected color Doppler and spectral images recorded. LIMITATIONS: None. FINDINGS: UTERUS: Contour normal. No mass. ENDOMETRIAL STRIPE: No focal or generalized thickening. No masses. CERVIX: No nabothian cysts. RIGHT OVARY AND DOPPLER: There is a simple 1.5 x 1.0 x 1.2 cm cyst. Normal arterial flow. LEFT OVARY AND DOPPLER: Normal size. No worrisome masses. Normal arterial vascular flow without evide nce for torsion. FREE FLUID: There is free fluid noted. OTHER: No other significant finding. MEASUREMENTS: UTERUS: 8.6 x 5.0 x 5.1 cm. ENDOMETRIAL STRIPE: 22.2 mm. RIGHT OVARY: 3.6 x 2.6 x 3.4 cm. LEFT OVARY: 2.8 x 1.5 x 3.1 cm. IMPRESSION: Small right ovarian cyst. Small amount of free fluid. No other significant findings. TECHNICAL DOCUMENTATION: JOB ID: [id number] [employer]- All Rights Reserved Rev Reading location - IP/workstation name: [email or web address]
== END ==
LOC: RAD 17:55
PROVIDERS: ATTEND Family Medicine
DX: N83.201 Unspecified ovarian cyst, right side (principal); R10.2 Pelvic and perineal pain
CPT/HCPCS: 76830

== ENCOUNTER → 2019-01-30 | Outpatient (CLI) | payer BC ==
[2019-01-30 16:52] LABS: HEMATOCRIT 35.1 % (36.0-47.0); MEAN CORPUSCULAR HEMOGLOBIN 30.2 pg (27.0-33.4); MEAN CORPUSCULAR HGB CONC 34.1 g/dL (32.0-36.0); MEAN CORPUSCULAR VOLUME 88 fl (80-97); PLATELET COUNT 216 10^3/uL (150-450); RED BLOOD COUNT 3.97 10^6/uL (3.72-5.28); RED CELL DISTRIBUTION WIDTH 13.4 % (11.5-14.0); WHITE BLOOD COUNT 11.6 10^3/uL (4.0-10.5)
[2019-01-30 16:56] LABS: ALANINE AMINOTRANSFERASE 21 U/L (9-52); ALBUMIN 4.1 g/dL (3.5-5.0); ALKALINE PHOSPHATASE 79 U/L (38-126); ANION GAP 12 (5-19); ASPARTATE AMINO TRANSFERASE 17 U/L (14-36); BILIRUBIN,DIRECT 0.2 mg/dL (0.0-0.4); BILIRUBIN,TOTAL 0.6 mg/dL (0.2-1.3); BLOOD UREA NITROGEN 8 mg/dL (7-20); CALCIUM 9.5 mg/dL (8.4-10.2); CARBON DIOXIDE 22 mmol/L (22-30); CHLORIDE 103 mmol/L (98-107); GLUCOSE 98 mg/dL (75-110); POTASSIUM 3.5 mmol/L (3.6-5.0); SODIUM 136.7 mmol/L (137-145); TOTAL PROTEIN 7.5 g/dL (6.3-8.2)
[2019-01-30 17:14] LABS: ABSOLUTE LYMPHOCYTES# (MANUAL) 0.3 10^3/uL (0.5-4.7); ABSOLUTE NEUTROPHILS# (MANUAL) 10.1 10^3/uL (1.7-8.2); BAND NEUTROPHILS % (MANUAL) 1 % (3-5); BASOPHILS % (MANUAL) 0 % (0-2); EOSINOPHILS % (MANUAL) 1 % (0-6); LYMPHOCYTES % (MANUAL) 3 % (13-45); MONOCYTES % (MANUAL) 9 % (3-13); PLATELET COMMENT ADEQUATE; POLYCHROMASIA 1+; SEGMENTED NEUTROPHILS % (MAN) 86 % (42-78); TOTAL CELLS COUNTED 100
== END ==
LOC: OD 15:48
PROVIDERS: ATTEND Nurse Practitioner Family
DX: R10.9 Unspecified abdominal pain (principal); R50.9 Fever, unspecified
CPT/HCPCS: 36415; 80053; 85025; 86308

== ENCOUNTER 2019-01-31 20:27 | Emergency (ER) | payer BC ==
[2019-01-31] MEDS ORDERED: ACETAMINOPHEN 325 MG TABLET PO ONE (21:46)
--- NOTE | 2019-01-31 21:52 | ER Document Report ---
ED Medical Screen (RME) - General Chief Complaint: Fever Stated Complaint: FEVER Time Seen by Provider: 01/31/19 21:44 Primary Care Provider: MARY ANN BRADY FNP-BC [Primary Care Provider] - Follow up as needed Notes: Patient is a 29-year-old female who presents the emergency department with a chief complaint of a fever and left flank pain. Symptoms started 5 days ago. She states that the pain started in the flank area. She denies any dysuria. States that she has more than a throbbing feeling headache when her temperature is other than 102. Exam: CVA tenderness on left flank area. I have greeted and performed a rapid initial assessment of this patient. A comprehensive ED assessment and evaluation of the patient, analysis of test results and completion of medical decision making process will be conducted by an additional ED providers. TRAVEL OUTSIDE OF THE [place] IN LAST 30 DAYS: No - Related Data Allergies/Adverse Reactions: No Known Allergies Allergy (Verified 07/09/17 11:36) Past Medical History - Social History Frequency of alcohol use: None Drug Abuse: None - Past Medical History Cardiac Medical History: Denies: Hx Atrial Fibrillation, Hx Congestive Heart Failure, Hx Coronary Artery Disease, Hx DVT, Hx Heart Attack, Hx Hypercholesterolemia, Hx Hypertension, Hx Peripheral Vascular Disease, Hx Pulmonary Embolism Pulmonary Medical History: Denies: Hx Asthma, Hx Bronchitis, Hx COPD, Hx Pneumonia Neurological Medical History: Denies: Hx Cerebrovascular Accident, Hx Migraine, Hx Seizures Endocrine Medical History: Denies: Hx Diabetes Mellitus Type 1, Hx Diabetes Mellitus Type 2, Hx Graves' Disease, Hx Hyperthyroidism, Hx Hypothyroidism Renal/ Medical History: Denies: Hx Ectopic , Hx End Stage Renal Disease, Hx Hemodialysis, Hx Hydrocele, Hx Kidney Stones, Hx Ovarian Cysts, Hx Peritoneal Dialysis, Hx Pelvic Inflammatory Disease, Hx Renal Insufficiency, Hx Varicocele Malignancy Medical History: Denies: Hx Bone Cancer, Hx Brain Cancer, Hx Breast Cancer, Hx Cervical Cancer, Hx Colorectal Cancer, Hx Leukemia, Hx Liver Cancer, Hx Lung Cancer, Hx Lymphoma, Hx Ovarian Cancer, Hx Pancreatic Cancer, Hx Renal (Kidney) Cancer, Hx Skin Cancer GI Medical History: Denies: Hx Cirrhosis, Hx Crohn's Disease, Hx Diverticulitis, Hx Gastritis, Hx Gastroesophageal Reflux Disease, Hx Hepatitis, Hx Hiatal Hernia, Hx Irritable Bowel, Hx Liver Failure, Hx Ulcer, Hx Ulcerative Colitis Musculoskeltal Medical History: Denies Hx Arthritis, Denies Hx Fibromyalgia, Denies Hx Gout, Denies Hx Multiple Sclerosis, Denies Hx Muscular Dystrophy, Denies Hx Muscle Spasm, Denies Hx Muscle Weakness, Denies Hx Musculoskeletal Deformity, Denies Hx Musculoskeletal Trauma Skin Medical History: Denies Hx Cellulitis, Denies Hx Eczema, Denies Hx MRSA, Denies Hx Psoriasis Psychiatric Medical History: Denies: Hx Anxiety, Hx Attention Deficit Hyperactivity Disorder, Hx Bipolar Disorder, Hx Borderline Personality Disorder, Hx Dementia, Hx Depression, Hx Obsessive Compulsive Disorder, Hx Personality Disorder, Hx Post Traumatic Stress Disorder, Hx Schizoaffective Disorder, Hx Schizophrenia Traumatic Medical History: Denies: Hx Fractures, Hx Gunshot Wound, Hx Liver Laceration, Hx Pneumothorax, Hx Spine Fracture, Hx Spleen Laceration/Rupture, Hx Traumatic Brain Injury Infectious Medical History: Denies: Hx C-Diff, Hx Hepatitis, Hx HIV, Hx MRSA, Hx VRE Past Surgical History: Reports: Hx Gynecologic Surgery - ectopic tube removed. Denies: Hx Abdominal Surgery, Hx Adenoidectomy, Hx Appendectomy, Hx Bowel Diversion, Hx Bowel Surgery, Hx Breast Surgery, Hx Cardiac Catheterization, Hx Cardiac Surgery, Hx Carotid Endarterectomy, Hx Section, Hx Cholecystectomy, Hx Colostomy, Hx Coronary Artery Bypass Graft, Hx Coronary Stent, Hx Dilation and Curettage, Hx Gastric Bypass Surgery, Hx Genitourinary Surgery, Hx Herniorrhaphy, Hx Hysterectomy, Hx Ileostomy, Hx Inguinal Hernia, Hx Internal Defibrillator, Hx Kidney (Renal Surgery), Hx Lumpectomy, Hx Mastectomy, Hx Myringotomy, Hx Neurologic Surgery, Hx Nose Surgery, Hx Open Heart Surgery, Hx Oral Surgery, Hx Orthopedic Surgery, Hx Pacemaker, Hx Pancreatic Surgery, Hx Pituitary Surgery, Hx Rectal Surgery, Hx Thyroid Surgery, Hx Tonsillectomy, Hx Tubal Ligation, Hx Umbilical Hernia, Hx Urinary Tract Surgery, Hx Urostomy, Hx Valve Replacement, Hx Vascular Surgery, Hx PERSONAL COMPUTER NETWORK ENGINEER Shunt, Hx Whipple - Immunizations Hx Diphtheria, Pertussis, Tetanus Vaccination: No History of Influenza Vaccine for 05/2017 - 10/2017 Season: Refused Physical Exam - Vital signs Vitals: Temp Pulse Resp BP Pulse Ox 102.3 F H 85 16 134/67 H 100 01/31/19 20:42 01/31/19 20:42 01/31/19 20:42 01/31/19 20:42 01/31/19 20:42 Course - Vital Signs Vital signs: Temp Pulse Resp BP Pulse Ox 102.3 F H 85 16 134/67 H 100 01/31/19 20:42 01/31/19 20:42 01/31/19 20:42 01/31/19 20:42 01/31/19 20:42 Doctor's Discharge - Discharge Referrals: MARY ANN BRADY, ADAPTIVE PHYSICAL EDUCATION SPECIALIST-BC [Primary Care Provider] - Follow up as needed
[2019-01-31 22:38] LABS: ABSOLUTE LYMPHOCYTES (AUTO) 0.7 10^3/uL (0.5-4.7); ABSOLUTE MONOCYTES (AUTO) 0.8 10^3/uL (0.1-1.4); ABSOLUTE NEUT (AUTO) 7.5 10^3/uL (1.7-8.2); BASOPHILS % (AUTO) 0.3 % (0-2); EOSINOPHILS % (AUTO) 0.3 % (0-6); HEMATOCRIT 34.7 % (36.0-47.0); LYMPHOCYTES % (AUTO) 8.1 % (13-45); MEAN CORPUSCULAR HEMOGLOBIN 30.6 pg (27.0-33.4); MEAN CORPUSCULAR HGB CONC 34.6 g/dL (32.0-36.0); MEAN CORPUSCULAR VOLUME 88 fl (80-97); MONOCYTES % (AUTO) 8.5 % (3-13); PLATELET COUNT 253 10^3/uL (150-450); RED BLOOD COUNT 3.93 10^6/uL (3.72-5.28); RED CELL DISTRIBUTION WIDTH 13.5 % (11.5-14.0); SEGMENTED NEUTROPHILS % (AUTO) 82.8 % (42-78); TOTAL CELLS COUNTED % (AUTO) 100 %
[2019-01-31 22:47] LABS: APPEARANCE,URINE CLOUDY; BILIRUBIN,URINE NEGATIVE (NEGATIVE); COLOR,URINE YELLOW; GLUCOSE, URINE NEGATIVE (NEGATIVE); KETONES,URINE 20 mg/dL (NEGATIVE); LEUKOCYTE ESTERASE,URINE MODERATE (NEGATIVE); NITRITE,URINE POSITIVE (NEGATIVE); PROTEIN,URINE 30 mg/dL (NEGATIVE); URINE SPECIFIC GRAVITY 1.019; UROBILINOGEN,URINE NEGATIVE mg/dL (<2.0)
[2019-01-31 22:55] LABS: ALANINE AMINOTRANSFERASE 30 U/L (9-52); ALBUMIN 4.2 g/dL (3.5-5.0); ALKALINE PHOSPHATASE 82 U/L (38-126); ANION GAP 10 (5-19); ASPARTATE AMINO TRANSFERASE 20 U/L (14-36); BILIRUBIN,DIRECT 0.3 mg/dL (0.0-0.4); BILIRUBIN,TOTAL 0.5 mg/dL (0.2-1.3); BLOOD UREA NITROGEN 8 mg/dL (7-20); CALCIUM 9.6 mg/dL (8.4-10.2); CARBON DIOXIDE 24 mmol/L (22-30); CHLORIDE 103 mmol/L (98-107); GLUCOSE 110 mg/dL (75-110); POTASSIUM 3.5 mmol/L (3.6-5.0); SODIUM 136.8 mmol/L (137-145); TOTAL PROTEIN 7.7 g/dL (6.3-8.2)
[2019-02-01] MEDS ORDERED: KETOROLAC TROMETHAMINE 60 MG/2 ML SDV IM ONE (01:11)
--- NOTE | 2019-02-01 02:09 | RADIOLOGY REPORT (SQ) ---
EXAM DESCRIPTION: US RETROPERITONEUM LIMITED COMPLETED DATE/TME: 02/01/2019 01:14 CLINICAL HISTORY: 29 years Female, left flank pain Comparison: None. LIMITATIONS: None. FINDINGS: 10-cm right kidney, 11-cm left kidney, and decompressed urinary bladder with demonstrated bilateral ureteral jet flow appear otherwise of normal size, shape, echotexture, and vascularity. IMPRESSION: Normal renal sonogram.
--- NOTE | 2019-02-01 02:26 | ER Document Report ---
ED General - General Chief Complaint: Fever Stated Complaint: FEVER Time Seen by Provider: 01/31/19 21:44 Primary Care Provider: MARY ANN BRADY FNP-BC [Primary Care Provider] - Follow up in 3-5 days Notes: Patient is a 29-year-old female who presents the emergency department with a chief complaint of a fever and left flank pain. Symptoms started 5 days ago. She states that the pain started in the flank area. She denies any dysuria. States that she has more than a throbbing feeling headache when her temperature is other than 102. She states that she has had urinary tract infections in the past, but this does not feel the same as her previous urinary tract infections. She does have some CVA tenderness. Her last bowel movement was today. She does have some nausea. She was seen by urgent care and was told that her urine specimen was contaminated. They sent her home and did not give her antibiotics. TRAVEL OUTSIDE OF THE [place] IN LAST 30 DAYS: No - Related Data Allergies/Adverse Reactions: No Known Allergies Allergy (Verified 07/09/17 11:36) Past Medical History - Social History Smoking Status: Never Smoker Frequency of alcohol use: None Drug Abuse: None Family History: Reviewed & Not Pertinent Patient has suicidal ideation: No Patient has homicidal ideation: No - Past Medical History Cardiac Medical History: Denies: Hx Atrial Fibrillation, Hx Congestive Heart Failure, Hx Coronary Art brent Disease, Hx DVT, Hx Heart Attack, Hx Hypercholesterolemia, Hx Hypertension, Hx Peripheral Vascular Disease, Hx Pulmonary Embolism Pulmonary Medical History: Denies: Hx Asthma, Hx Bronchitis, Hx COPD, Hx Pneumonia Neurological Medical History: Denies: Hx Cerebrovascular Accident, Hx Migraine, Hx Seizures Endocrine Medical History: Denies: Hx Diabetes Mellitus Type 1, Hx Diabetes Mellitus Type 2, Hx Graves' Disease, Hx Hyperthyroidism, Hx Hypothyroidism Renal/ Medical History: Denies: Hx Ectopic , Hx End Stage Renal Disease, Hx Hemodialysis, Hx Hydrocele, Hx Kidney Stones, Hx Ovarian Cysts, Hx Peritoneal Dialysis, Hx Pelvic Inflammatory Disease, Hx Renal Insufficiency, Hx Varicocele Malignancy Medical History: Denies: Hx Bone Cancer, Hx Brain Cancer, Hx Breast Cancer, Hx Cervical Cancer, Hx Colorectal Cancer, Hx Leukemia, Hx Liver Cancer, Hx Lung Cancer, Hx Lymphoma, Hx Ovarian Cancer, Hx Pancreatic Cancer, Hx Renal (Kidney) Cancer, Hx Skin Cancer GI Medical History: Denies: Hx Cirrhosis, Hx Crohn's Disease, Hx Diverticulitis, Hx Gastritis, Hx Gastroesophageal Reflux Disease, Hx Hepatitis, Hx Hiatal Hernia, Hx Irritable Bowel, Hx Liver Failure, Hx Ulcer, Hx Ulcerative Colitis Musculoskeletal Medical History: Denies Hx Arthritis, Denies Hx Fibromyalgia, Denies Hx Gout, Denies Hx Multiple Sclerosis, Denies Hx Muscular Dystrophy, Denies Hx Muscle Spasm, Denies Hx Muscle Weakness, Denies Hx Musculoskeletal Deformity, Denies Hx Musculoskeletal Trauma Skin Medical History: Denies Hx Cellulitis, Denies Hx Eczema, Denies Hx MRSA, Denies Hx Psoriasis Psychiatric Medical History: Denies: Hx Anxiety, Hx Attention Deficit Hyperactivity Disorder, Hx Bipolar Disorder, Hx Borderline Personality Disorder, Hx Dementia, Hx Depression, Hx Obsessive Compulsive Disorder, Hx Personality Disorder, Hx Post Traumatic Stress Disorder, Hx Schizoaffective Disorder, Hx Schizophrenia Traumatic Medical History: Denies: Hx Fractures, Hx Gunshot Wound, Hx Liver Laceration, Hx Pneumothorax, Hx Spine Fracture, Hx Spleen Laceration/Rupture, Hx Traumatic Brain Injury Infectious Medical History: Denies: Hx C-Diff, Hx Hepatitis, Hx HIV, Hx MRSA, Hx VRE Past Surgical History: Reports: Hx Gynecologic Surgery - ectopic tube removed. Denies: Hx Abdominal Surgery, Hx Adenoidectomy, Hx Appendectomy, Hx Bowel Diversion, Hx Bowel Surgery, Hx Breast Surgery, Hx Cardiac Catheter ization, Hx Cardiac Surgery, Hx Carotid Endarterectomy, Hx Section, Hx Cholecystectomy, Hx Colostomy, Hx Coronary Artery Bypass Graft, Hx Coronary Stent, Hx Dilation and Curettage, Hx Gastric Bypass Surgery, Hx Genitourinary Surgery, Hx Herniorrhaphy, Hx Hysterectomy, Hx Ileostomy, Hx Inguinal Hernia, Hx Internal Defibrillator, Hx Kidney (Renal Surgery), Hx Lumpectomy, Hx Mastectomy, Hx Myringotomy, Hx Neurologic Surgery, Hx Nose Surgery, Hx Open Heart Surgery, Hx Oral Surgery, Hx Orthopedic Surgery, Hx Pacemaker, Hx Pancreatic Surgery, Hx Pituitary Surgery, Hx Rectal Surgery, Hx Thyroid Surgery, Hx Tonsillectomy, Hx Tubal Ligation, Hx Umbilical Hernia, Hx Urinary Tract Surgery, Hx Urostomy, Hx Valve Replacement, Hx Vascular Surgery, Hx TIRE VULCANIZER Shunt, Hx Whipple - Immunizations Hx Diphtheria, Pertussis, Tetanus Vaccination: No Review of Systems - Review of Systems Notes: REVIEW OF SYSTEMS: CONSTITUTIONAL : See HPI EENT: Denies eye, ear, throat, or mouth pain, discharge, or symptoms. Denies nasal or sinus congestion. CARDIOVASCULAR: Denies chest pain. RESPIRATORY: Denies shortness of breath, cough, congestion, difficulty breathing, or wheezing. GASTROINTESTINAL: See HPI GENITOURINARY: Denies difficulty urinating, burning, blood in urine, urgency or frequency. MUSCULOSKELETAL: See HPI SKIN: Denies rash, itchiness, or lesions HEMATOLOGIC : Denies easy bruising or bleeding. LYMPHATIC: Denies swollen, painful, enlarged glands. NEUROLOGICAL: Denies no numbness or tingling denies weakness. Denies headache. Denies altered mental status. Denies alteration in speech. PSYCHIATRIC: Denies stress, anxiety, alteration in sleep patterns, or depression. All other systems reviewed and negative. Physical Exam - Vital signs Vitals: Temp Pulse Resp BP Pulse Ox 102.3 F H 85 16 134/67 H 100 01/31/19 20:42 01/31/19 20:42 01/31/19 20:42 01/31/19 20:42 01/31/19 20:42 - Notes Notes: PHYSICAL EXAMINATION: GENERAL: Appears well, healthy, well-nourished, no acute distress. HEAD: Normocephalic, atraumatic. EYES: PERRL, conjunctiva normal, all extraocular movements intact, sclera nonicteric ENT: Moist mucous membranes. NECK: Supple, no noticeable swelling, redness, rash. Normal range of motion. LUNGS: Equal breath sounds bilaterally and clear to auscultation. No wheezes rales or rhonchi. CARDIOVASCULAR: S1-S2, regular rate, regular rhythm. Radial pulses 2+, normal. ABDOMEN: Normoactive bowel sounds. Soft, mildly tender mid lower abdomen, no guarding, no rebound tenderness, and no masses palpated. EXTREMITIES: Normal strength and range of motion, no pitting or edema. No cyanosis. NEUROLOGICAL: Moves all extremities upon command. Strength 5/5 in all extremities. PSYCH: Normal mood, normal affect. SKIN: Warm, dry. No rash, lesions, ulcerations noted. Normal skin turgor. BACK: Left CVA tenderness. Course - Re-evaluation Re-evalutation: 02/01/19 01:20 I assessed the patient in triage and she did have CVA tenderness during my exam. She has a moderate amount of leukocytes and a moderate amount of blood in her urine. I am not certain is whether or not this is possibly an infected kidney stone or from a urinary tract infection. She does state that she is on her menstrual at the end of her menstrual cycle. Her age she is urine hCG is negative. At this time I will send her for a any renal stone. A very low susp icion for pelvic inflammatory disease. Patient is nontoxic in appearance. I do not suspect sepsis. She is not tachycardic and her temperature has improved with Tylenol. 02/01/19 02:31 Any acute stone, ruling out a infected kidney stone. She will be started on Keflex for urinary tract infection. Her urine will be sent for culture. She will follow-up with her primary care provider. Verbal discharge instructions were given to the patient. They verbalized understanding. They are stable for discharge. - Vital Signs Vital signs: Temp Pulse Resp BP Pulse Ox 98.6 F 75 16 137/88 H 100 02/01/19 02:46 02/01/19 02:46 02/01/19 02:46 02/01/19 02:46 02/01/19 02:46 - Laboratory Result Diagrams: 01/31/19 22:20 01/31/19 22:20 Laboratory results interpreted by me: 01/31/19 01/31/19 01/31/19 22:20 22:20 22:20 Hct 34.7 L Seg Neutrophils % 82.8 H Lymphocytes % 8.1 L Sodium 136.8 L Potassium 3.5 L Urine Protein 30 H Urine Ketones 20 H Urine Blood MODERATE H Urine Nitrite POSITIVE H Ur Leukocyte Esterase MODERATE H Urine Ascorbic Acid 40 H Discharge - Discharge Clinical Impression: Urinary tract infection Qualifiers: Urinary tract infection type: acute cystitis Hematuria presence: with hematuria Qualified Code(s): N30.01 - Acute cystitis with hematuria Condition: Stable Disposition: HOME, SELF-CARE Instructions: Cephalexin ([facility]), Urinary Tract Infection ([facility]) Additional Instructions: You are seen today in the emergency department for a fever, body aches, and back pain. Your urine shows findings consistent with a urinary tract infection. Please take all the antibiotics as directed even if your symptoms have improved. Please follow-up with your primary care physician as needed. Return to emergency room if you develop fever >101F, persistent vomiting, become lethargic, have severe pain in your sides, or any other symptoms that are concerning to you. Please continue to take Tylenol 1000 mg and ibuprofen 600 mg every 6 hours for your fever and body aches. Prescriptions: Cephalexin [Keflex] 500 mg PO BID #14 capsule Forms: Return to Work Referrals: MARY ANN BRADY FNP-BC [Primary Care Provider] - Follow up in 3-5 days
[2019-02-01] MEDS ORDERED: CEPHALEXIN 500 MG CAPSULE PO ONE (02:29)
[2019-02-01 02:49] VITALS: BP 137/88
== END 2019-02-01 02:46 | disposition home or self-care (01) ==
LOC: ER 20:27
DX: N30.01 Acute cystitis with hematuria (principal); R50.9 Fever, unspecified; R10.9 Unspecified abdominal pain; R11.0 Nausea; Z87.59 Personal history of other complications of pregnancy, childbirth and the puerperium; Z90.79 Acquired absence of other genital organ(s)
CPT/HCPCS: 36415; 76775; 80053; 81001; 81025; 85025; 87086; 87088; 87186; 99284

== ENCOUNTER → 2020-07-01 | Outpatient (CLI) | payer BC ==
--- OUTSIDE RECORDS SUMMARY | 2020-07-01 17:07 | XMS REPORT ---
:1990 [facility] Address [address] [address] Care Team Providers Name Role Phone Amanda Attending Clinician Unavailable Luis Miguel Ratliff Attending Clinician Unavailable Allergies, Adverse Reactions, Alerts This patient has no known allergies or adverse reactions. Medications This patient has no known medications. Problems This patient has no known problems. Procedures Procedure Date / Time Performed Performing Clinician Devic e OFFICE/OUTPATIENT VISIT EST 2019-01-30 14:30:00 PREV VISIT EST AGE 18-39 2018-09-21 08:30:00 Results Test Description Test Time Test Comments Text Results Atomic Results Result Comments COMPREHENSIVE METABOLIC PANEL\S\L 2019-01-30 16:01:00 Test Item Value Reference Range Comments ALBUMIN (test code = ALB) 4.1 g/dL 3.5-5.0 ALKALINE PHOSPHATASE (test code = ALKP) 79 U/L 38-126 TOTAL PROTEIN (test code = TP) 7.5 g/dL 6.3-8.2 EGFR, (test code = GFRAA) > 60 >60 CARBON DIOXIDE (test code = CO2) 22 mmol/L 22-30 ANION GAP (test code = ANION) 12 5-19 BILIRUBIN,DIRECT (test code = BC) 0.2 mg/dL 0.0-0.4 SODIUM (test code = NA) 136.7 mmol/L 137-145 CREATININE RESULT (test code = CREA) 0.76 mg/dL 0.52-1.25 CHLORIDE (test code = CL-1) 103 mmol/L 98-107 GLUCOSE (test code = GLU) 98 mg/dL 75-110 ALANINE AMINOTRANSFERASE (test code = ALT) 21 U/L 9-52 ASPARTATE AMINO TRANSFERASE (test code = AST) 17 U/L 14 -36 BLOOD UREA NITROGEN (test code = BUN) 8 mg/dL 7-20 BILIRUBIN,TOTAL (test code = TBIL) 0.6 mg/dL 0.2-1.3 CALCIUM (test code = CA) 9.5 mg/dL 8.4-10.2 EGFR,NON (test code = GFRN) > 60 >60 POTASSIUM (test code = K) 3.5 mmol/L 3.6-5.0 MANUAL DIFFERENTIAL\S\[id number] 16:01:00 Test Item Value Reference Range Comments BAND NEUTROPHILS % (MANUAL) (test code = 1 % 3-5 BAND%M) LYMPHOCYTES % (MANUAL) (test code = LYMPH%M) 3 % 13- 45 ABSOLUTE LYMPHOCYTES# (MANUAL) (test code = 0.3 10 3/uL 0.5- 4.7 LYMPH#M) BASOPHILS % (MANUAL) (test code = BASO%M) 0 % 0-2 EOSINOPHILS % (MANUAL) (test code = EOS%M) 1 % 0-6 ABSOLUTE MONOCYTES # (MANUAL) (test code = 1.0 10 3/uL 0.1-1 .4 MONO#M) ABSOLUTE EOSINOPHILS# (MANUAL) (test code = 0.1 10 3/uL 0.0- 0.6 EOS#M) PLATELET COMMENT (test code = PLTCOM) ADEQUATE SEGMENTED NEUTROPHILS % (MAN) (test code = 86 % 42-78 SEG%M) ABSOLUTE BASOPHILS # (MANUAL) (test code = 0.0 10 3/uL 0.0-0 .2 BASO#M) ABSOLUTE NEUTROPHILS# (MANUAL) (test code = 10.1 10 3/uL 1.7- 8.2 NEUT#M) POLYCHROMASIA (test code = POLC) 1+ MONOCYTES % (MANUAL) (test code = MONO%M) 9 % 3-13 TOTAL CELLS COUNTED (test code = TCC) 100 CBC WITH DIFF\S\[id number] 16:01:00 Test Item Value Reference Range Comments MEAN CORPUSCULAR VOLUME (test code = MCV) 88 fl 80-97 MEAN CORPUSCULAR HEMOGLOBIN (test code = MCH) 30.2 pg 27 .0-33.4 HEMATOCRIT (test code = HCT) 35.1 % 36.0-47.0 MEAN CORPUSCULAR HGB CONC (test code = MCHC) 34.1 g/dL 32. 0-36.0 PLATELET COUNT (test code = PLT) 216 10 3/uL 150-450 WHITE BLOOD COUNT (test code = WBC) 11.6 10 3/uL 4.0-10.5 RED BLOOD COUNT (test code = RBC) 3.97 10 6/uL 3.72-5.28 HEMOGLOBIN (test code = HGB) 12.0 g/dL 12.0-15.5 RED CELL DISTRIBUTION WIDTH (test code = RDW) 13.4 % 11 .5-14.0 MONOTEST\S\[id number] 16:01:00 Test Item Value Reference Range Comments MONOTEST (test code = MONO) NEGATIVE NEGATIVE Rapid Strep\S\2019-01-30 14:30:00 Test Item Value Reference Range Comments Rapid Strep (test code = RAPIDSTREP) negative N/A Urine \S\2019-01-30 14:30:00 Test Item Value Reference Range Comments Urine (test code = URINEPREG) negative N/A CHLAMYDIA/N. GONORRHOEAE RNA, TMA, [id number] 11:24:00 Test Item Value Reference Range Comments NEISSERIA GONORRHOEAE RNA, TMA, UROGENITAL NOT DETECTED NOT D ETECTED (test code = 66818338) CHLAMYDIA TRACHOMATIS RNA, TMA, UROGENITAL NOT DETECTED NOT D ETECTED (test code = 63568526) THINPREP TIS PAP REFLEX HPV mRNA [id number] 11:18:00 Test Item Value Reference Range Comments PREV. PAP: (test code = UNKNOWN 35714668) INFECTION: (test code = Cellular changes consistent with 66810011) Herpes simplex virus SOURCE: (test code = Cervix 61070898) PREV. BX: (test code = UNKNOWN 11328188) COMMENT: (test code = This Pap test has been evaluated 68312850) with computer assisted technology. Wet Prep by Molecular [id number] 14:06:00 Test Item Value Reference Range Comments Trichomonas vaginalis (test code = 750657) NEG Negat karolyn Kim species (test code = 315316) NEG Negative Gardnerella vaginalis (test code = 250493) POS Negat karolyn C. trachomatis/N.gonorrhoeae [id number] 10:16:00 Test Item Value Reference Range Comments Neisseria gonorrhoeae RNA (test code = 840039) NOT DETECTED Chlamydia trachomatis RNA (test code = 902775) NOT DETECTED Urine \S\2016-09-27 10:00:00 Test Item Value Reference Range Comments Urine (test code = URINEPREG) negative N/A Assessments Condition Name Status Diagnosis Date Treating Clinici an Unspecified abdominal pain Active Fever, unspecified Active Other headache syndrome Active Body mass index (BMI) 24.0-24.9, adult Active Encntr for electroless plater exam (general) (routine) w/o Active abn findings Pelvic and perineal pain Active Acute vaginitis Active Herpesviral infection, unspecified Active Encounters Start End Encounter Admission Attending Care Care Encounter Date/Time Date/Time Type Type Clinicians Facility Department ID 2019-01-30 2019-01-30 Outpatient Amanda [facility] [id number] 14:30:00 14:30:00 Cecilia Dugan [id number] and [id number] [facility], 2018-09-21 2018-09-21 Outpatient Luis Miguel [facility] [id number] 08:30:00 08:30:00 Evy, Children [id number] [facility], [place] Social History This patient has no known social history. Vital Signs This patient has no known vital signs.
--- NOTE | 2020-07-01 18:56 | RADIOLOGY REPORT (SQ) ---
EXAM DESCRIPTION: U/S NON-OB PELVIS TV W/O DOP IMAGES COMPLETED DATE/TIME: 07/01/2020 5:18 pm REASON FOR STUDY: (R10.2)PELVIC AND PERINEAL PAIN R10.2 PELVIC AND PERINEAL PAIN COMPARISON: 10/03/2018 TECHNIQUE: Dynamic and static grayscale images acquired of the pelvis via transvaginal approach and recorded on PACS. Additional selected color Doppler and spectral images recorded. LIMITATIONS: None. FINDINGS: UTERUS: The myometrium is slightly heterogeneous. No definable fibroid is seen. ENDOMETRIAL STRIPE: No focal or generalized thickening. No masses. CERVIX: 2.3 cm. No nabothian cysts. RIGHT OVARY AND DOPPLER: Normal size. No worrisome masses. Normal arterial vascular flow without evid ence for torsion. LEFT OVARY AND DOPPLER: Normal size. There is what appears to represent an involuting cyst measuring 13 x 11 x 11 mm. No worrisome masses. Normal arterial vascular flow without evidence for torsion. FREE FLUID: None noted. OTHER: No other significant finding. MEASUREMENTS: UTERUS: 8.2 x 4.1 x 5.1 cm. ENDOMETRIAL STRIPE: 8 mm. RIGHT OVARY: 2.8 x 2.2 x 2 cm. LEFT OVARY: 2.7 x 1.8 x 1.9 cm. IMPRESSION: The myometrium is slightly heterogeneous. No definable fibroid is seen. There appears to be an involuting cyst in the left ovary. No other significant finding. TECHNICAL DOCUMENTATION: JOB ID: [id number] 2010 [employer]- All Rights Reserved Rev-01/06 Reading location - IP/workstation name: [email or web address]
== END ==
LOC: RAD 16:46
PROVIDERS: ATTEND Nurse Practitioner Family
DX: R10.2 Pelvic and perineal pain (principal); N83.202 Unspecified ovarian cyst, left side
CPT/HCPCS: 76830